=== PATIENT | female | born 1965 | race Caucasian/White ===

== ENCOUNTER → 2017-08-29 | Outpatient (CLI) | payer BC ==
[2017-08-30 12:02] LABS: HEPATITIS B SURFACE ANTIGEN NEGATIVE (NEGATIVE)
[2017-08-30 12:22] LABS: HEPATITIS C VIRUS ABY INDEX < 0.0 INDEX (<0.8)
[2017-08-30 12:23] LABS: HIV 1&2 SCREEN CENTAUR NEGATIVE (NEGATIVE)
== END ==
LOC: M WUC 15:51
DX: Z11.3 Encounter for screening for infections with a predominantly sexual mode of transmission (principal)

== ENCOUNTER 2018-01-16 15:05 | Emergency (ER) | payer BC, OTHER ==
[2018-01-16] MEDS: GI COCKTAIL 50ML BTL(HYOSCYAMINE/MAALOX/LIDOCAINE VISCOUS)(1:3:1) PO (16:31)
[2018-01-16] MEDS: ONDANSETRON 4 MG ORAL DISINTEGRATING TAB (Q0162 PER 1MG) PO (17:02)
== END 2018-01-16 17:22 | disposition home or self-care (01) ==
LOC: M ED 15:05
DX: T39.391A Poisoning by other nonsteroidal anti-inflammatory drugs [NSAID], accidental (unintentional), initial encounter (principal)
CPT/HCPCS: Q0162

== ENCOUNTER → 2020-05-05 | Outpatient (CLI) | payer OTHER, BC ==
[~2020-05-05] MED LIST: BACL10TA2 PO; BUPR1TAB56 PO; CLAR10CA3 PO; MONT10TA10 PO; OSPH1TAB PO; OXYB5TAB10 PO; SAXE1INJ SC; SERT-141 PO; TRAM50TA2 PO; VITA200028 PO; XANA0.5T PO; ZOFR4TAB14 PO
[2020-05-05 12:22] LABS: BASO # 0.1 10^3/uL (0.0-0.2); BASO % 1.7 % (0.0-1.0); EOS # 0.1 10^3/uL (0.0-0.5); EOS % 2.1 % (0.0-3.0); HEMOGLOBIN 11.6 g/dl (12.0-15.5); LYMPH # 1.5 10^3/uL (1.5-5.0); LYMPH % 30.4 % (24.0-44.0); MEAN CORPUSCULAR HEMOGLOBIN 25.5 pg (27.0-33.0); MEAN CORPUSCULAR HGB CONC 29.7 g/dl (32.0-36.5); MEAN CORPUSCULAR VOLUME 85.7 fl (80.0-96.0); MONO # 0.4 10^3/uL (0.0-0.8); MONO % 8.5 % (2.0-8.0); NEUTROPHILS # 2.8 10^3/uL (1.5-8.5); NEUTROPHILS % 57.1 % (36.0-66.0); PLATELET COUNT, AUTOMATED 237 10^3/uL (150-450); RED BLOOD COUNT 4.55 10^6/uL (4.00-5.40); WHITE BLOOD COUNT 4.8 10^3/uL (4.0-10.0)
[2020-05-05 13:06] LABS: CHOLESTEROL RISK RATIO 2.409 (<5); PERCENT SATURATION 10.7 % (13.2-45.0); TOTAL 25(OH) VITAMIN D 44.9 NG/ML (30.0-100.0)
== END ==
LOC: M WUC 09:10
PROVIDERS: ATTEND Internal Medicine
DX: E55.9 Vitamin D deficiency, unspecified (principal); E78.01 Familial hypercholesterolemia

== ENCOUNTER → 2020-07-24 | Outpatient (CLI) | payer OTHER, BC ==
[~2020-07-24] MED LIST changes: +ADVA230A INH; +CELE1CAP9 PO; +FERR240T PO; +OMEP-221 PO; +PROAAER10 INH; +VENL25TA28 PO; +VITA50005 PO
== END ==
LOC: M LABSMTC 09:41
PROVIDERS: ATTEND Anesthesiology
DX: Z01.812 Encounter for preprocedural laboratory examination (principal); Z11.52 Encounter for screening for COVID-19

== ENCOUNTER 2020-07-29 10:51 | Day surgery (SDC) | payer BC, OTHER ==
[~2020-07-29] VITALS: Ht 175.3 cm; Wt 147.0 kg
[~2020-07-29 10:51] MED LIST changes: +LIDOCAINE 2% 100MG/5ML SDV (FOR ANES.) As Ordered ONE; +NS 1,000 ML IV ONE; +fentaNYL 100 MCG/2 ML INJECTION (J3010) As Ordered ONE; +propofoL 500 MG/50 ML VIAL As Ordered ONE
[2020-07-29] MEDS ORDERED: propofoL 200 MG/20 ML VIAL As Ordered ONE (12:39)
--- NOTE | 2020-07-29 13:11 | ROOR ---
Patient Name: Enedina Massey Procedure Date: 07/29/2020 12:09 PM Date of : 1965 Age: 55 Room: [facility] Gender: Female Note Status: Finalized Procedure: Upper GI endoscopy Indications: Epigastric abdominal pain, Iron deficiency anemia Providers: Jamie Townsend MD Referring MD: ANTONELLA FISHMAN MD Requesting Provider: Medicines: Monitored Anesthesia Care Complications: No immediate complications. Procedure: Pre-Anesthesia Assessment: - Prior to the procedure, a History and Physical was performed, and patient medications and allergies were reviewed. The patient is competent. The risks and benefits of the procedure and the sedation options and risks were discussed with the patient. All questions were answered and informed consent was obtained. Patient identification and proposed procedure were verified by the physician, the nurse and the anesthesiologist in the procedure room. Mental Status Examination: alert and oriented. Airway Examination: normal oropharyngeal airway and neck mobility. Respiratory Examination: clear to auscultation. CV Examination: normal. Prophylactic Antibiotics: The patient does not require prophylactic antibiotics. Prior Anticoagulants: The patient has taken no previous anticoagulant or antiplatelet agents. ASA Grade Assessment: II - A patient with mild systemic disease. After reviewing the risks and benefits, the patient was deemed in satisfactory condition to undergo the procedure. The anesthesia plan was to use monitored anesthesia care (MAC). Immediately prior to administration of medications, the patient was re-assessed for adequacy to receive sedatives. The heart rate, respiratory rate, oxygen saturations, blood pressure, adequacy of pulmonary ventilation, and response to care were monitored throughout the procedure. The physical status of the patient was re-assessed after the procedure. The Endoscope was introduced through the mouth, and advanced to the second part of duodenum. The upper GI endoscopy was accomplished without difficulty. The patient tolerated the procedure well. Findings: LA Grade A (one or more mucosal breaks less than 5 mm, not extending between tops of 2 mucosal folds) esophagitis with no bleeding was found in the distal esophagus. Biopsies were taken with a cold forceps for histology. Verification of patient identification for the specimen was done by the physician and nurse using the patient's name, date and medical record number. Estimated blood loss was minimal. The Z-line was regular and was found 40 cm from the incisors. Evidence of a Kailee-en-Y gastrojejunostomy was found. The gastrojejunal anastomosis was characterized by healthy appearing mucosa. This was traversed. The apnvn-hc-calzldx limb was characterized by healthy appearing mucosa. The jejunojejunal anastomosis was characterized by healthy appearing mucosa. The xypasqyz-zx-vqiooxu limb was not examined as it could not be found. The examined jejunum was normal. Biopsies for histology were taken with a cold forceps for evaluation of celiac disease. Impression: - LA Grade A reflux esophagitis. Rule out Smith's esophagus. Biopsied. - Z-line regular, 40 cm from the incisors. - Kailee-en-Y gastrojejunostomy with gastrojejunal anastomosis characterized by healthy appearing mucosa. - Normal examined jejunum. Biopsied. Recommendation: - Patient has a contact number available for emergencies. The signs and symptoms of potential delayed complications were discussed with the patient. Return to normal activities tomorrow. Written discharge instructions were provided to the patient. - Post gastric bypass diet (small frequent meals and avoid fatty/ fried foods). - Continue present medications. - Await pathology results. - Telephone GI clinic for pathology results in 2 weeks. - Return to primary care physician. Procedure Code(s): --- Professional --- 91000, Esophagogastroduodenoscopy, flexible, transoral; with biopsy, single or multiple Diagnosis Code(s): --- Professional --- K21.0, Gastro-esophageal reflux disease with esophagitis Z98.0, Intestinal bypass and anastomosis status R10.13, Epigastric pain D50.9, Iron deficiency anemia, unspecified CPT copyright 2019 [employer]. All rights reserved. The codes documented in this report are preliminary and upon flute grinder review may be revised to meet current compliance requirements. Jamie Townsend MD Jamie Townsend MD 07/29/2020 1:10:52 PM Electronically signed by Jamie Townsend MD Number of Addenda: 0 Note Initiated On: 07/29/2020 12:09 PM Estimated Blood Loss: Estimated blood loss was minimal.
--- NOTE | 2020-07-29 13:18 | ROOR ---
Patient Name: Enedina Massey Procedure Date: 07/29/2020 12:11 PM Date of : 1965 Age: 55 Room: [facility] Gender: Female Note Status: Finalized Procedure: Colonoscopy Indications: Screening for colorectal malignant neoplasm, Incidental - Chronic diarrhea Providers: Jamie Townsend MD Referring MD: ANTONELLA FISHMAN MD Requesting Provider: Medicines: Monitored Anesthesia Care Complications: No immediate complications. Procedure: Pre-Anesthesia Assessment: - Prior to the procedure, a History and Physical was performed, and patient medications and allergies were reviewed. The patient is competent. The risks and benefits of the procedure and the sedation options and risks were discussed with the patient. All questions were answered and informed consent was obtained. Patient identification and proposed procedure were verified by the physician, the nurse and the anesthesiologist in the procedure room. Mental Status Examination: alert and oriented. Airway Examination: normal oropharyngeal airway and neck mobility. Respiratory Examination: clear to auscultation. CV Examination: normal. Prophylactic Antibiotics: The patient does not require prophylactic antibiotics. Prior Anticoagulants: The patient has taken no previous anticoagulant or antiplatelet agents. ASA Grade Assessment: II - A patient with mild systemic disease. After reviewing the risks and benefits, the patient was deemed in satisfactory condition to undergo the procedure. The anesthesia plan was to use monitored anesthesia care (MAC). Immediately prior to administration of medications, the patient was re-assessed for adequacy to receive sedatives. The heart rate, respiratory rate, oxygen saturations, blood pressure, adequacy of pulmonary ventilation, and response to care were monitored throughout the procedure. The physical status of the patient was re-assessed after the procedure. The Colonoscope was introduced through the anus and advanced to the terminal ileum, with identification of the appendiceal orifice and IC valve. The colonoscopy was performed without difficulty. The patient tolerated the procedure well. The quality of the bowel preparation was good. The terminal ileum, ileocecal valve, appendiceal orifice, and rectum were photographed. Scope insertion time was 3 minutes. Scope withdrawal time was 9 minutes. The total duration of the procedure was 12 minutes. Findings: The perianal and digital rectal examinations were normal. The terminal ileum appeared normal. A 3 mm polyp was found in the ascending colon. The polyp was sessile. The polyp was removed with a cold snare. Resection and retrieval were complete. Normal mucosa was found in the entire colon. Biopsies for histology were taken with a cold forceps from the right colon, left colon and rectosigmoid colon for evaluation of microscopic colitis. Verification of patient identification for the specimen was done by the physician and nurse using the patient's name, date and medical record number. Estimated blood loss was minimal. A large amount of semi-liquid stool was found from sigmoid to ascending colon, interfering with visualization. Lavage of the area was performed using a large amount of sterile water, resulting in incomplete clearance with fair visualization. Non-bleeding external and internal hemorrhoids were found during retroflexion. The hemorrhoids were medium-sized. Impression: - The examined portion of the ileum was normal. - One 3 mm polyp in the ascending colon, removed with a cold snare. Resected and retrieved. - Normal mucosa in the entire examined colon. Biopsied. - Stool from sigmoid to ascending colon. - Non-bleeding external and internal hemorrhoids. Recommendation: - Patient has a contact number available for emergencies. The signs and symptoms of potential delayed complications were discussed with the patient. Return to normal activities tomorrow. Written discharge instructions were provided to the patient. - High fiber diet and Post gastric bypass diet (small frequent meals and avoid fatty/ fried foods). - Continue present medications. - Await pathology results. - Repeat colonoscopy in 5-10 years for surveillance based on pathology results. - Telephone GI clinic for pathology results in 2 weeks. - Return to primary care physician. Procedure Code(s): --- Professional --- 05404, Colonoscopy, flexible; with removal of tumor(s), polyp(s), or other lesion(s) by snare technique 25304, 59, Colonoscopy, flexible; with biopsy, single or multiple Diagnosis Code(s): --- Professional --- Z12.11, Encounter for screening for malignant neoplasm of colon K64.8, Other hemorrhoids K63.5, Polyp of colon CPT copyright 2019 [employer]. All rights reserved. The codes documented in this report are preliminary and upon transcription coordinator review may be revised to meet current compliance requirements. Jamie Townsend MD Jamie Townsend MD 07/29/2020 1:18:11 PM Electronically signed by Jamie Townsend MD Number of Addenda: 0 Note Initiated On: 07/29/2020 12:11 PM Estimated Blood Loss: Estimated blood loss was minimal.
[2020-07-29 13:23] VITALS: BP 119/58
== END 2020-07-29 13:24 | disposition home or self-care (01) ==
LOC: M OPP 10:51
PROVIDERS: ATTEND Internal Medicine Gastroenterology
DX: Z12.11 Encounter for screening for malignant neoplasm of colon (principal); Z80.0 Family history of malignant neoplasm of digestive organs; K63.5 Polyp of colon; K64.8 Other hemorrhoids; K21.00 Gastro-esophageal reflux disease with esophagitis, without bleeding; Z98.0 Intestinal bypass and anastomosis status; R10.13 Epigastric pain; D50.9 Iron deficiency anemia, unspecified; R19.7 Diarrhea, unspecified; R39.89 Other symptoms and signs involving the genitourinary system; Z79.899 Other long term (current) drug therapy; Z88.1 Allergy status to other antibiotic agents; Z86.13 Personal history of malaria; Z98.84 Bariatric surgery status; Z87.891 Personal history of nicotine dependence
CPT/HCPCS: 43239; 45380; 45385; 88305; J3010

== ENCOUNTER → 2020-08-11 | Outpatient (REF) | payer BC, OTHER ==
[~2020-08-11] MED LIST changes: -LIDOCAINE 2% 100MG/5ML SDV (FOR ANES.) As Ordered ONE; -NS 1,000 ML IV ONE; -fentaNYL 100 MCG/2 ML INJECTION (J3010) As Ordered ONE; -propofoL 500 MG/50 ML VIAL As Ordered ONE
== END ==
LOC: M LAB REF 15:54
PROVIDERS: ATTEND Internal Medicine Gastroenterology
DX: R19.7 Diarrhea, unspecified (principal)

== ENCOUNTER 2020-09-09 22:19 | Observation (INO) | payer BC, OTHER ==
[~2020-09-09] VITALS: Ht 175.3 cm; Wt 147.7 kg
[~2020-09-09 22:19] MED LIST changes: +ERGO500029 PO; -VITA50005 PO
[2020-09-09 22:43] LABS: BASO # 0.1 10^3/uL (0.0-0.2); EOS # 0.1 10^3/uL (0.0-0.5); EOS % 1.4 % (0.0-3.0); HEMOGLOBIN 12.2 g/dl (12.0-15.5); LYMPH # 2.1 10^3/uL (1.5-5.0); LYMPH % 28.9 % (24.0-44.0); MEAN CORPUSCULAR HEMOGLOBIN 28.6 pg (27.0-33.0); MEAN CORPUSCULAR HGB CONC 32.1 g/dl (32.0-36.5); MEAN CORPUSCULAR VOLUME 89.2 fl (80.0-96.0); MONO # 0.6 10^3/uL (0.0-0.8); MONO % 7.7 % (2.0-8.0); NEUTROPHILS # 4.3 10^3/uL (1.5-8.5); NEUTROPHILS % 60.7 % (36.0-66.0); PLATELET COUNT, AUTOMATED 229 10^3/uL (150-450); RED BLOOD COUNT 4.26 10^6/uL (4.00-5.40); WHITE BLOOD COUNT 7.1 10^3/uL (4.0-10.0)
[2020-09-09 23:13] LABS: ALBUMIN 3.4 GM/DL (3.2-5.2); ALT/SGPT 27 U/L (12-78); BILIRUBIN,DIRECT < 0.1 MG/DL (0.0-0.2); BILIRUBIN,TOTAL 0.2 MG/DL (0.2-1.0); TOTAL PROTEIN 6.4 GM/DL (6.4-8.2)
[2020-09-09] MEDS ORDERED: MORPHINE 4 MG/ML 1ML VIAL/SYRINGE (J2270) IV ONE (23:30)
--- NOTE | 2020-09-09 23:43 | REPVR ---
PROCEDURE INFORMATION: Exam: XR Right Knee Exam date and time: 09/09/2020 10:56 PM Age: 55 years old Clinical indication: Other: Pain; Additional info: Fall TECHNIQUE: Imaging protocol: XR Right knee. Views: 4 or more views. COMPARISON: No relevant prior studies available. FINDINGS: Bones/joints: Slight sharpening of the tibial spines. Early degenerative spurring. No fracture. No joint effusion. Soft tissues: Soft tissue swelling or hematoma anterior to the patella. Mild subcutaneous edema about the knee medially and laterally. IMPRESSION: 1. Early degenerative change. 2. Prepatellar soft tissue swelling and possible hematoma with extension of edema about the knee medially and laterally. 3. Otherwise negative right knee. No fracture. Electronically signed by: Dean Love On 09/09/2020 23:43:09 PM
[2020-09-10 00:03] LABS: CPK CREATINE PHOSPHOKINASE 127 U/L (26-192)
--- NOTE | 2020-09-10 00:24 | REPVR ---
PROCEDURE INFORMATION: Exam: US Duplex Right Lower Extremity Veins, Limited Exam date and time: 09/09/2020 12:14 AM Age: 55 years old Clinical indication: Pain; Leg, upper; Right; Additional info: Knee trauma, pain out of proportion, swelling TECHNIQUE: Imaging protocol: Real-time Duplex ultrasound of the Right Lower Extremity with 2-D patel scale, color Doppler flow and spectral waveform analysis with image documentation. Limited exam was focused on the right lower extremity veins. COMPARISON: CR Knee, complete RIGHT 09/09/2020 10:47 PM FINDINGS: Right deep veins: Unremarkable. The common femoral, femoral, proximal profunda femoral and popliteal veins are patent without thrombus. Normal Doppler waveforms. Normal compressibility and/or augmentation response. Portions of calf veins are not seen due to body habitus. Right superficial veins: Unremarkable. Saphenofemoral junction is patent without thrombus. Soft tissues: Unremarkable. IMPRESSION: Negative right lower extremity venous duplex exam without evidence of deep venous thrombosis. Electronically signed by: Dean Love On 09/10/2020 00:23:34 AM
[2020-09-10] MEDS ORDERED: fentaNYL 100 MCG/2 ML INJECTION (J3010) IV ONE (01:00)
[2020-09-10] MEDS ORDERED: ACET-683 PO (02:26)
[2020-09-10] MEDS ORDERED: ACET25TA12 PO (02:26)
[2020-09-10] MEDS ORDERED: LORA24TA PO (02:26)
[2020-09-10] MEDS ORDERED: VENLAFAXINE ER PO (02:26)
[2020-09-10] MEDS ORDERED: ALPR0.25 PO (02:28)
[2020-09-10] MEDS ORDERED: MAALOX 30 ML SUSP *UDC PO PRN (03:35)
[2020-09-10] MEDS ORDERED: ACETAMINOPHEN TAB 650MG DOSE (2X325MG) PO PRN (03:35)
[2020-09-10] MEDS ORDERED: MOM 30ML SUSPENSION UDC PO PRN (03:35)
[2020-09-10] MEDS ORDERED: MORPHINE 4 MG/ML 1ML VIAL/SYRINGE (J2270) IV ONE (03:35)
[2020-09-10] MEDS ORDERED: PERCOCET 5MG/325MG TAB PO PRN (03:50)
[2020-09-10] MEDS ORDERED: MORPHINE 4 MG/ML 1ML VIAL/SYRINGE (J2270) IV PRN (03:50)
[2020-09-10] MEDS ORDERED: NS 1,000 ML IV SCH (04:35)
[2020-09-10] MEDS ORDERED: ALPRAZolam 0.25 MG TAB PO PRN (04:35)
--- NOTE | 2020-09-10 04:36 | HPEPDOC ---
[facility] Medical History & Physical Date of Admission Sep 10, 2020 Date of Service: Sep 10, 2020 History and Physical CHIEF COMPLAINT: Right knee pain HISTORY OF PRESENT ILLNESS: 55-year-old female with a history of gastric bypass surgery, osteoarthritis, depression, anxiety, hysterectomy, asthma, presenting to the ER with right-sided knee pain which developed after she sustained a mechanical fall and fell onto her and knee yesterday. This was followed immediately by large swelling and bruising of the knee. Patient was given 100 g of fentanyl en route via EMS. An additional 50 g while in the ER. Dr. Rizvi was consulted from the ER with concern for rupture of quadriceps tendon. Recommending MRI. MRI imaging of the knee. She'll be admitted to hospital service for ongoing orthopedic workup and pain control. PAST MEDICAL HISTORY: obesity OA Asthma Depression Anxiety PAST SURGICAL HISTORY: gastric bypass hysterectomy SOCIAL HISTORY: Patient denies smoking Patient denies etoh use Patient denies illicit drug use FAMILY HISTORY: Review the patient, reports no relevant family history ALLERGIES: Please see below. REVIEW OF SYSTEMS: 10 point review of systems completed, relevant findings noted in the HPI HOME MEDICATIONS: Please see below. PHYSICAL EXAMINATION: VITAL SIGNS: please see below General: NAD, comfortable. Obese female HEENT: PERRLA, EOMI, sclerae clear Neck: supple, normal ROM, no JVD Respiratory: lungs CTAB, no wheeze, no rales, no crackles CVS: RRR, normal S1, S2, no murmurs Abdo: soft, no masses, no hepatosplenomegaly, BS+, no rebound tenderness Extremities: no edema, pulses 2+ MSK: Significant swelling and ecchymosis of the right knee with limited range of motion due to pain. Neuro: no focal neuro deficits, moving all 4 extremities, CN2-12 intact. Strength 5/5 in all 4 extremities. No nystagmus. Psych: calm, cooperative, AAO x 3 LABORATORY DATA: See below. IMAGING: XR R knee (09/09/20): 1. Early degenerative change. 2. Prepatellar soft tissue swelling and possible hematoma with extension of edema about the knee medially and laterally. 3. Otherwise negative right knee. No fracture. Vascular US (09/09/20): IMPRESSION: Negative right lower extremity venous duplex exam without evidence of deep venous thrombosis. MICROBIOLOGY: Please see below. ASSESSMENT: 55-year-old female with a history of gastric bypass surgery, osteoarthritis, depression, anxiety, hysterectomy, asthma, presenting with s ervices. Severe right knee pain after a fall in that knee. Concern for hemarthrosis/hematoma overlying the knee as well as rupture of the quadriceps tendon. Dr. Rizvi consulted from the OR. Recommending MRI knee to r/o tendon rupture. PLAN: R knee hematoma, possible quadriceps tendon rupture - sustained after fall on bent knee, mechanical - severe pain, required fentanyl 100 mcg on EMS arrival, additioanl 50 mc in ER - XR shows no obvious fx - Dr. Rizvi consulted, concern for quadriceps tendon rupture, obtain MRI R knee - pain control: oxycodone 5/325 q6h prn, morphine 4 mg q4h IV for breakthrough - bowel regimen - keep NPO, IV NS started Hx Gastric Bypass - cw pantoprazole Depression/anxiety - resume home meds Morbid obesity, BMI 48.1 - complicating care - check a1c, lipid [id number] DVT ppx: SCDs, TEDs. Holding heparin Vital Signs Vital Signs Date Time Temp Pulse Resp B/P (MAP) Pulse Ox O2 Delivery O2 Flow Rate FiO2 09/10/20 03:55 19 98 Room Air 09/09/20 22:36 98.0 93 159/81 (107) Laboratory Data Labs 24H Laboratory Tests 2 09/09/20 22:37: Immature Granulocyte % (Auto) 0.3, Neutrophils (%) (Auto) 60.7, Lymphocytes (%) (Auto) 28.9, Monocytes (%) (Auto) 7.7, Eosinophils (%) (Auto) 1.4, Basophils (%) (Auto) 1.0, Neutrophils # (Auto) 4.3, Lymphocytes # (Auto) 2.1, Monocytes # (Auto) 0.6, Eosinophils # (Auto) 0.1, Basophils # (Auto) 0.1, Nucleated Red Blood Cells % (auto) 0.0, Total Bilirubin 0.2, Direct Bilirubin < 0.1, Aspartate Amino Transf (AST/SGOT) 20, Alanine Aminotransferase (ALT/SGPT) 27, Alkaline Phosphatase 88, Total Creatine Kinase 127, Total Protein 6.4, Albumin 3.4, Albumin/Globulin Ratio 1.1L 09/09/20 22:39: POC Glucose (Misc Panel) 111H, POC Sodium (Misc Panel) 142, POC Potassium (Misc Panel) 4.4, POC Chloride (Misc Panel) 105, POC Total CO2 (Misc Panel) 24.0, POC Blood Urea Nitrogen (Misc Panel 17, POC Ionized Calcium (Misc Panel) 4.8, POC Creatinine (Misc Panel) 0.8, POC Hematocrit (Misc Panel) 35.0L 09/10/20 03:06: CBC/BMP Laboratory Tests 09/09/20 22:37 Home Medications Scheduled Acetaminophen (Acetaminophen) 500 Mg Tablet, 1,000 MG PO QAM Bupropion HCl (Bupropion HCl Sr) 200 Mg Tab, 200 MG PO BID Celecoxib (Celecoxib) 200 Mg Capsule, 200 MG PO DAILY Ergocalciferol (Vitamin D2) (Vitamin D2) 50,000 Units Cap, 50,000 UNITS PO QWEEK SATURDAY Liraglutide (Saxenda) 18 Mg/3 Ml Inj, 1.2 MG SC QHS Loratadine/Pseudoephedrine (Loratadine-D 24Hr Tablet) 1 Each Tab.er.24h, 1 TAB PO QHS Omeprazole (Omeprazole) 40 Mg Capsule.dr, 40 MG PO DAILY Ospemifene (Osphena) 60 Mg Tab, 60 MG PO QPM Oxybutynin Chloride (Oxybutynin Chloride) 5 Mg Tab, 10 MG PO BID [Venlafaxine Er] , 225 MG PO QPM Scheduled PRN Acetaminophen/Diphenhydramine (Acetaminophen Pm Caplet) 1 Each Tablet, 1 TAB PO QHS PRN for SLEEP Alprazolam (Alprazolam) 0.25 Mg Tablet, 0.25 MG PO QHS PRN for ANXIETY Tramadol HCl (Tramadol HCl) 50 Mg Tab, 50 MG PO BID PRN for pain Allergies Coded Allergies: tetracycline (Verified Adverse Reaction, Intermediate, vomiting and di arrhea, 07/22/20) A-FIB/CHADSVASC A-FIB History Current/History of A-Fib/PAF?: No ROSALIA REYES MD Sep 10, 2020 04:36
[2020-09-10 04:54] LABS: RSV AMPLIFICATION NEGATIVE (NEGATIVE)
--- NOTE | 2020-09-10 05:46 | REPVR ---
PROCEDURE INFORMATION: Exam: MR Right Lower Extremity Joint Without Contrast, Knee Exam date and time: 09/10/2020 4:55 AM Age: 55 years old Clinical indication: Injury or trauma; Fall; Blunt trauma; Knee; Right; Injury date: 09/10/20; Additional info: Knee swelling, severe pain, fall, quad tear? , Thigh pls TECHNIQUE: Imaging protocol: MR of the Right lower extremity joint without contrast. Exam focused on the knee. COMPARISON: US Duplex, Ext,LOWER veins,unilat RIGHT 09/10/2020 12:01 AM FINDINGS: Bones and cartilage: Degenerative arthritis femorotibial joint. Normal underlying marrow signal within the distal femur and proximal tibia.. Chondromalacia patella with small area of increased T2 signal within the inner margin of the patella probably degenerative. Joint spaces: Very small knee joint effusion anteriorly. Medial meniscus: Unremarkable. No tear. Lateral meniscus: Unremarkable. No tear. Anterior cruciate ligament: Unremarkable. No tear. Posterior cruciate ligament: Unremarkable. No tear. Medial capsule and supporting structures: Unremarkable. No tear. Lateral capsule and supporting structures: Unremarkable. No tear. Extensor mechanism of knee: Unremarkable. No tear. Muscles: Unremarkable. Soft tissues: Prominent superficial soft tissue edema of the imaged level of the right knee most pronounced anteriorly, laterally and medially. More focal heterogeneous pre patella superficial soft tissue mass according to the clinical history most likely representing hematoma extends caudad to the knee joint level and proximal tibia anterior to the infra patella tendon. Overall dimensions measure 13.7 cm craniocaudal by 10.6 cm transversely by 7.3 cm antro posterior. Vasculature: Superficial venous varicosities. Other findings: Prominent motion degradation. IMPRESSION: 1. Large pre patella superficial soft tissue hematoma. 2. 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 3. Superficial soft tissue edema. Electronically signed by: Nae Mosquera On 09/10/2020 05:45:18 AM
[2020-09-10 06:14] VITALS: BP 154/94
[2020-09-10 06:55] LABS: BASO # 0.1 10^3/uL (0.0-0.2); BASO % 1.1 % (0.0-1.0); EOS # 0.1 10^3/uL (0.0-0.5); EOS % 1.1 % (0.0-3.0); HEMATOCRIT 38.2 % (36.0-47.0); LYMPH % 32.1 % (24.0-44.0); MEAN CORPUSCULAR HEMOGLOBIN 28.4 pg (27.0-33.0); MEAN CORPUSCULAR HGB CONC 31.4 g/dl (32.0-36.5); MEAN CORPUSCULAR VOLUME 90.5 fl (80.0-96.0); MONO # 0.5 10^3/uL (0.0-0.8); MONO % 7.5 % (2.0-8.0); NEUTROPHILS # 3.6 10^3/uL (1.5-8.5); NEUTROPHILS % 57.7 % (36.0-66.0); PLATELET COUNT, AUTOMATED 225 10^3/uL (150-450); RED BLOOD COUNT 4.22 10^6/uL (4.00-5.40); WHITE BLOOD COUNT 6.3 10^3/uL (4.0-10.0)
[2020-09-10 07:09] LABS: HEMOGLOBIN A1c 5.5 %
[2020-09-10 07:15] LABS: CHOLESTEROL RISK RATIO 2.329 (<5)
[2020-09-10 07:16] LABS: ALBUMIN 3.4 GM/DL (3.2-5.2); ALT/SGPT 26 U/L (12-78); BILIRUBIN,TOTAL 0.2 MG/DL (0.2-1.0); BLOOD UREA NITROGEN 17 MG/DL (7-18); CALCIUM LEVEL 8.3 MG/DL (8.5-10.1); CARBON DIOXIDE LEVEL 31 MEQ/L (21-32); CHLORIDE LEVEL 108 MEQ/L (98-107); CREATININE FOR GFR 0.82 MG/DL (0.55-1.30); GLOMERULAR FILTRATION RATE > 60.0 (>51); GLUCOSE, FASTING 110 MG/DL (70-100); MAGNESIUM LEVEL 2.3 MG/DL (1.8-2.4); POTASSIUM SERUM 4.2 MEQ/L (3.5-5.1); SODIUM LEVEL 143 MEQ/L (136-145); TOTAL PROTEIN 6.2 GM/DL (6.4-8.2)
[2020-09-10] MEDS ORDERED: DOCUSATE SODIUM 100MG CAPSULE PO SCH (09:00)
[2020-09-10] MEDS ORDERED: oxyBUTYnin 5 MG TAB PO SCH (09:00)
[2020-09-10] MEDS ORDERED: buPROPion (WELLBUTRIN SR) 100 MG SR TAB PO SCH (09:00)
--- NOTE | 2020-09-10 09:41 | CR.PDOC ---
General Date of Consultation: Sep 10, 2020 Consultation REASON FOR CONSULTATION/CHIEF COMPLAINT: right knee swelling and pain History from patient and admission H&P HISTORY OF PRESENT ILLNESS: Patient fell yesterday evening while carrying too many objects to balance. She fell forward onto her right knee onto a thinly carpeted concrete floor. She had immediate severe pain and was taken to the ED. She had xrays and an US r/o dvt which were negative except for hematoma. Ortho called by ED re: concern for pain, which was thought to be disproportionate. Given the severity of the soft tissue swellling and the large hematoma on xray, pain seemed appropriate and compartment syndrome less likely. Concerned for possible quads muscular or tendon tearing, MRI ordered and reviewed. Showed no significant pathology aside from the large hematoma and soft tissue swelling. Patient admitted to Hospitalist service for failure to cope secondary to pain. Overnight, MRI completed, as above. Patient states that pain improved significantly. Working with PT on assessment this am. Denies any tingling or numbness to right leg. PAST MEDICAL HISTORY: obesity OA Asthma Depression Anxiety PAST SURGICAL HISTORY: gastric bypass hysterectomy SOCIAL HISTORY: Patient denies smoking Patient denies etoh use Patient denies illicit drug use FAMILY HISTORY: Review the patient, reports no relevant family history ALLERGIES: Please see below. REVIEW OF SYSTEMS: As noted in the HPI HOME MEDICATIONS: Please see below. PHYSICAL EXAMINATION: NVI to right leg. Palpable PT pulse, grossly intact sensation and motor to foot and ankle. Edema, erythema and ecchymosis to right prepatellar region. tender to touch prepatellar bursal region, reportedly improved large fluctuant peripatellar mass consistent with hematoma calf non tender and compressible thight non tender and compressible LABORATORY DATA: See below. IMAGING: XR R knee 1. Early degenerative change. 2. Prepatellar soft tissue swelling and possible hematoma with extension of edema about the knee medially and laterally. 3. Otherwise negative right knee. No fracture. US R leg IMPRESSION: Negative right lower extremity venous duplex exam without evidence of DVT MRI right knee: hematoma, large and diffuse with prepatellar soft tissue edema. No evidence of soft tissue structure injury, specifically. Some evidence of varicosities MICROBIOLOGY: Please see below. ASSESSMENT: 55-year-old female with a history of gastric bypass surgery, ost eoarthritis, depression, anxiety, hysterectomy, asthma, presenting with Severe right knee pain after a fall. Hematoma noted on MRI with no other obvious injuries. Pain likely associated with prepatellar bursitis and hematoma may be associated with a veinous varicosity tear. PLAN: R knee hematoma with prepatellar bursitis. No surgical intervention needed at this time. WBAT, ROM as tolerated. Ambulatory aids as necessary. Knee immobilizer PRN for comfort. Pt would like to follow up in clinic as needed, Office contact info provided. Will supply Outpt PT referral to [facility] as requested. DC home when able and cleared by PT from Ortho perspective. Vital Signs/I&O Vital Signs Date Time Temp Pulse Resp B/P (MAP) Pulse Ox O2 Delivery O2 Flow Rate FiO2 09/10/20 06:20 18 Room Air 09/10/20 06:14 98.3 95 154/94 (114) 97 Laboratory Data Labs 24H Laboratory Tests 2 09/09/20 22:37: Immature Granulocyte % (Auto) 0.3, Neutrophils (%) (Auto) 60.7, Lymphocytes (%) (Auto) 28.9, Monocytes (%) (Auto) 7.7, Eosinophils (%) (Auto) 1.4, Basophils (%) (Auto) 1.0, Neutrophils # (Auto) 4.3, Lymphocytes # (Auto) 2.1, Monocytes # (Auto) 0.6, Eosinophils # (Auto) 0.1, Basophils # (Auto) 0.1, Nucleated Red Blood Cells % (auto) 0.0, Total Bilirubin 0.2, Direct Bilirubin < 0.1, Aspartate Amino Transf (AST/SGOT) 20, Alanine Aminotransferase (ALT/SGPT) 27, Alkaline Phosphatase 88, Total Creatine Kinase 127, Total Protein 6.4, Albumin 3.4, Albumin/Globulin Ratio 1.1L 09/09/20 22:39: POC Glucose (Misc Panel) 111H, POC Sodium (Misc Panel) 142, POC Potassium (Misc Panel) 4.4, POC Chloride (Misc Panel) 105, POC Total CO2 (Misc Panel) 24.0, POC Blood Urea Nitrogen (Misc Panel 17, POC Ionized Calcium (Misc Panel) 4.8, POC Creatinine (Misc Panel) 0.8, POC Hematocrit (Misc Panel) 35.0L 09/10/20 03:06: Coronavirus (COVID-19)(PCR) NEGATIVE, Influenza Type A (RT-PCR) NEGATIVE, Influenza Type B (RT-PCR) NEGATIVE, Respiratory Syncytial Virus (PCR) NEGATIVE 09/10/20 06:32: Immature Granulocyte % (Auto) 0.5, Neutrophils (%) (Auto) 57.7, Lymphocytes (%) (Auto) 32.1, Monocytes (%) (Auto) 7.5, Eosinophils (%) (Auto) 1.1, Basophils (%) (Auto) 1.1H, Neutrophils # (Auto) 3.6, Lymphocytes # (Auto) 2.0, Monocytes # (Auto) 0.5, Eosinophils # (Auto) 0.1, Basophils # (Auto) 0.1, Nucleated Red Blood Cells % (auto) 0.0, Total Bilirubin 0.2, Aspartate Amino Transf (AST/SGOT) 16, Alanine Aminotransferase (ALT/SGPT) 26, Alkaline Phosphatase 74, Total Protein 6.2L, Albumin 3.4, Albumin/Globulin Ratio 1.2, Anion Gap 4L, Glomerular Filtration Rate > 60.0, Estimated Mean Plasma Glucose 111H, Hemoglobin A1c 5.5, Calcium Level 8.3L, Magnesium Level 2.3, Triglycerides Level 50, Total Cholesterol 184, LDL Cholesterol 95, Non-HDL Cholesterol (LDL + VLDL) 105, Total HDL Cholesterol 79, Cholesterol/HDL Ratio 2.329 CBC/BMP Laboratory Tests 09/09/20 22:37 09/10/20 06:32 Allergies Coded Allergies: tetracycline (Verified Adverse Reaction, Intermediate, vomiting and diarrhea, 07/22/20) Home Medications Scheduled Acetaminophen (Acetaminophen) 500 Mg Tablet, 1,000 MG PO QAM, (Reported) Bupropion HCl (Bupropion HCl Sr) 200 Mg Tab, 200 MG PO BID, (Reported) Celecoxib (Celecoxib) 200 Mg Capsule, 200 MG PO DAILY, (Reported) Ergocalciferol (Vitamin D2) (Vitamin D2) 50,000 Units Cap, 50,000 UNITS PO QWEEK, (Reported) SATURDAY Liraglutide (Saxenda) 18 Mg/3 Ml Inj, 1.2 MG SC QHS, (Reported) Loratadine/Pseudoephedrine (Loratadine-D 24Hr Tablet) 1 Each Tab.er.24h, 1 TAB PO QHS, (Reported) Omeprazole (Omeprazole) 40 Mg Capsule.dr, 40 MG PO DAILY, (Reported) Ospemifene (Osphena) 60 Mg Tab, 60 MG PO QPM, (Reported) Oxybutynin Chloride (Oxybutynin Chloride) 5 Mg Tab, 10 MG PO BID, (Reported) [Venlafaxine Er] , 225 MG PO QPM, (Reported) Scheduled PRN Acetaminophen/Diphenhydramine (Acetaminophen Pm Caplet) 1 Each Tablet, 1 TAB PO QHS PRN for SLEEP, (Reported) Alprazolam (Alprazolam) 0.25 Mg Tablet, 0.25 MG PO QHS PRN for ANXIETY, (Reported) Tramadol HCl (Tramadol HCl) 50 Mg Tab, 50 MG PO BID PRN for pain, (Reported) FARHAD STERLING MD Sep 10, 2020 09:41
[2020-09-10] MEDS ORDERED: TRAM50TA2 PO (09:56)
[2020-09-10] MEDS ORDERED: PERC10TA26 PO (11:52)
--- NOTE | 2020-09-10 13:34 | DS.PDOC ---
Discharge Summary General Date of Admission Sep 09, 2020 at 22:20 Date of Discharge 09/10/20 Discharge Summary PROCEDURES PERFORMED DURING STAY: [None]. ADMITTING DIAGNOSES: Depression/anxiety Morbid obesity, BMI 48.1 Hx Gastric Bypass R knee hematoma with prepatellar bursitis DISCHARGE DIAGNOSES: Depression/anxiety Morbid obesity, BMI 48.1 Hx Gastric Bypass R knee hematoma with prepatellar bursitis COMPLICATIONS/CHIEF COMPLAINT: R Knee Pain,Unable To Bear Weight On R Lower Extr. HISTORY OF PRESENT ILLNESS:Patient fell yesterday evening while carrying too many objects to balance. She fell forward onto her right knee onto a thinly carpeted concrete floor. She had immediate severe pain and was taken to the ED. She had xrays and an US r/o dvt which were negative except for hematoma. Ortho called by ED re: concern for pain, which was thought to be disproportionate. Given the severity of the soft tissue swellling and the large hematoma on xray, pain seemed appropriate and compartment syndrome less likely. Concerned for possible quads muscular or tendon tearing, MRI ordered and reviewed. Showed no significant pathology aside from the large hematoma and soft tissue swelling. Patient admitted to Hospitalist service for failure to cope secondary to pain. Overnight, MRI completed, as above. Patient states that pain improved significantly. Working with PT on assessment this am. Denies any tingling or numbness to right leg. HOSPITAL COURSE: During hospital stay following showed addressed Patient was consulted by orthopedic team patient was diagnosed with R knee hematoma with prepatellar bursitis. No surgical intervention needed at this time. WBAT, ROM as tolerated. Ambulatory aids as necessary. Knee immobilizer PRN for comfort. DISCHARGE MEDICATIONS: Please see below. ALLERGIES: Please see below. PHYSICAL EXAMINATION ON DISCHARGE: VITAL SIGNS: please see below General: NAD, comfortable. Obese female HEENT: PERRLA, EOMI, sclerae clear Neck: supple, normal ROM, no JVD Respiratory: lungs CTAB, no wheeze, no rales, no crackles CVS: RRR, normal S1, S2, no murmurs Abdo: soft, no masses, no hepatosplenomegaly, BS+, no rebound tenderness Extremities: no edema, pulses 2+ MSK: Significant swelling and ecchymosis of the right knee with limited range of motion due to pain. Neuro: no focal neuro deficits, moving all 4 extremities, CN2-12 intact. Strength 5/5 in all 4 extremities. No nystagmus. Psych: calm, cooperative, AAO x 3 LABORATORY DATA: Please see below. IMAGING: [facility] NAME: SHAUN HUSAIN DATE OF : 1965 BUSINESS NUMBER: [id number] AGE: 55 SEX: F REPORT #: [id number] ROOM: ED INP TECHNOLOGIST: MARYA DOCTOR: IAM DUENAS PA-C Ordered for Date&Time: 09/10/20 0146 cc: [~ rep ct ivnm] Service Date&Time: 09/10/20 0455 This report is in Signed status. Interpretation performed by [facility]. Thank you for having your radiology procedures performed at [facility] RADIOLOGY REPORT Date&Time printed: [~ rep prt dt last] [~ rep prt tm last] Page 2 of 2 [place] [id number] RADIOLOGY REPORT This report is in Signed status. Interpretation performed by [facility]. Thank you for having your radiology procedures performed at [facility] RADIOLOGY REPORT Date&Time printed: [~ rep prt dt last] [~ rep prt tm last] Page 1 of 2 PROCEDURE INFORMATION: Exam: MR Right Lower Extremity Joint Without Contrast, Knee Exam date and time: 09/10/2020 4:55 AM Age: 55 years old Clinical indication: Injury or trauma; Fall; Blunt trauma; Knee; Right; Injury date: 09/10/20; Additional info: Knee swelling, severe pain, fall, quad tear? , Thigh pls TECHNIQUE: Imaging protocol: MR of the Right lower extremity joint without contrast. Exam focused on the knee. COMPARISON: US Duplex, Ext,LOWER veins,unilat RIGHT 09/10/2020 12:01 AM FINDINGS: Bones and cartilage: Degenerative arthritis femorotibial joint. Normal underlying marrow signal within the distal femur and proximal tibia.. Chondromalacia patella with small area of increased T2 signal within the inner margin of the patella probably degenerative. Joint spaces: Very small knee joint effusion anteriorly. Medial meniscus: Unremarkable. No tear. Lateral meniscus: Unremarkable. No tear. Anterior cruciate ligament: Unremarkable. No tear. Posterior cruciate ligament: Unremarkable. No tear. Medial capsule and supporting structures: Unremarkable. No tear. Lateral capsule and supporting structures: Unremarkable. No tear. Extensor mechanism of knee: Unremarkable. No tear. Muscles: Unremarkable. Soft tissues: Prominent superficial soft tissue edema of the imaged level of the right knee most pronounced anteriorly, laterally and medially. More focal heterogeneous pre patella superficial soft tissue mass according to the clinical history most likely representing hematoma extends caudad to the knee joint level and proximal tibia anterior to the infra patella tendon. Overall dimensions measure 13.7 cm craniocaudal by 10.6 cm transversely by 7.3 cm antro posterior. Vasculature: Superficial venous varicosities. Other findings: Prominent motion degradation. IMPRESSION: 1. Large pre patella superficial soft tissue hematoma. 2. 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 3. Superficial soft tissue edema. Electronically signed by: Nae Serra On 09/10/2020 05:45:18 AM DD: NAE SERRA DO 09/10/20 0455 DT: VR 09/10/2045 DS: NADEGE 09/10/2045 [~ rep ct labl] PROGNOSIS: Fair ACTIVITY: [As tolerated]. DIET: Cardiac DISPOSITION: 01 Home, Self-Care. ITEMS TO FOLLOWUP ON ON OUTPATIENT: Follow-up with PCP. DISCHARGE CONDITION: [Stable]. TIME SPENT ON DISCHARGE:40 minutes. Vital Signs/I&Os Vital Signs Date Time Temp Pulse Resp B/P (MAP) Pulse Ox O2 Delivery O2 Flow Rate FiO2 09/10/20 06:20 18 Room Air 09/10/20 06:14 98.3 95 154/94 (114) 97 Laboratory Data Labs 24H Laboratory Tests 2 09/09/20 22:37: Immature Granulocyte % (Auto) 0.3, Neutrophils (%) (Auto) 60.7, Lymphocytes (%) (Auto) 28.9, Monocytes (%) (Auto) 7.7, Eosinophils (%) (Auto) 1.4, Basophils (%) (Auto) 1.0, Neutrophils # (Auto) 4.3, Lymphocytes # (Auto) 2.1, Monocytes # (Auto) 0.6, Eosinophils # (Auto) 0.1, Basophils # (Auto) 0.1, Nucleated Red Blood Cells % (auto) 0.0, Total Bilirubin 0.2, Direct Bilirubin < 0.1, Aspartate Amino Transf (AST/SGOT) 20, Alanine Aminotransferase (ALT/SGPT) 27, Alkaline Phosphatase 88, Total Creatine Kinase 127, Total Protein 6.4, Albumin 3.4, Albumin/Globulin Ratio 1.1L 09/09/20 22:39: POC Glucose (Misc Panel) 111H, POC Sodium (Misc Panel) 142, POC Potassium (Misc Panel) 4.4, POC Chloride (Misc Panel) 105, POC Total CO2 (Misc Panel) 24.0, POC Blood Urea Nitrogen (Misc Panel 17, POC Ionized Calcium (Misc Panel) 4.8, POC Creatinine (Misc Panel) 0.8, POC Hematocrit (Misc Panel) 35.0L 09/10/20 03:06: Coronavirus (COVID-19)(PCR) NEGATIVE, Influenza Type A (RT-PCR) NEGATIVE, Influenza Type B (RT-PCR) NEGATIVE, Respiratory Syncytial Virus (PCR) NEGATIVE 09/10/20 06:32: Immature Granulocyte % (Auto) 0.5, Neutrophils (%) (Auto) 57.7, Lymphocytes (%) (Auto) 32.1, Monocytes (%) (Auto) 7.5, Eosinophils (%) (Auto) 1.1, Basophils (%) (Auto) 1.1H, Neutrophils # (Auto) 3.6, Lymphocytes # (Auto) 2.0, Monocytes # (Auto) 0.5, Eosinophils # (Auto) 0.1, Basophils # (Auto) 0.1, Nucleated Red Blood Cells % (auto) 0.0, Total Bilirubin 0.2, Aspartate Amino Transf (AST/SGOT) 16, Alanine Aminotransferase (ALT/SGPT) 26, Alkaline Phosphatase 74, Total Protein 6.2L, Albumin 3.4, Albumin/Globulin Ratio 1.2, Anion Gap 4L, Glomerular Filtration Rate > 60.0, Estimated Mean Plasma Glucose 111H, Hemoglobin A1c 5.5, Calcium Level 8.3L, Magnesium Level 2.3, Triglycerides Level 50, Total Cholesterol 184, LDL Cholesterol 95, Non-HDL Cholesterol (LDL + VLDL) 105, Total HDL Cholesterol 79, Cholesterol/HDL Ratio 2.329 CBC/BMP Laboratory Tests 09/09/20 22:37 09/10/20 06:32 Discharge Medications Scheduled Acetaminophen (Acetaminophen) 500 Mg Tablet, 1,000 MG PO QAM, (Reported) Bupropion HCl (Bupropion HCl Sr) 200 Mg Tab, 200 MG PO BID, (Reported) Celecoxib (Celecoxib) 200 Mg Capsule, 200 MG PO DAILY, (Reported) Ergocalciferol (Vitamin D2) (Vitamin D2) 50,000 Units Cap, 50,000 UNITS PO QWEEK, (Reported) SATURDAY Liraglutide (Saxenda) 18 Mg/3 Ml Inj, 1.2 MG SC QHS, (Reported) Loratadine/Pseudoephedrine (Loratadine-D 24Hr Tablet) 1 Each Tab.er.24h, 1 TAB PO QHS, (Reported) Omeprazole (Omeprazole) 40 Mg Capsule.dr, 40 MG PO DAILY, (Reported) Ospemifene (Osphena) 60 Mg Tab, 60 MG PO QPM, (Reported) Oxybutynin Chloride (Oxybutynin Chloride) 5 Mg Tab, 10 MG PO BID, (Reported) [Venlafaxine Er] , 225 MG PO QPM, (Reported) Scheduled PRN Acetaminophen/Diphenhydramine (Acetaminophen Pm Caplet) 1 Each Tablet, 1 TAB PO QHS PRN for SLEEP, (Reported) Alprazolam (Alprazolam) 0.25 Mg Tablet, 0.25 MG PO QHS PRN for ANXIETY, (Reported) Oxycodone HCl/Acetaminophen (Percocet 10-325 mg Tablet) 1 Each Tablet, 1 TAB PO Q4-6HP PRN for SEVERE PAIN (PS 8-10) Tramadol HCl (Tramadol HCl) 50 Mg Tab, 50 MG PO BID PRN for pain, (Reported) Tramadol HCl (Tramadol HCl) 50 Mg Tablet, 1 TAB PO Q6HP PRN for pain Allergies Coded Allergies: tetracycline (Verified Adverse Reaction, Intermediate, vomiting and diarrhea, 07/22/20) ARLYN HU DO Sep 10, 2020 13:34
== END 2020-09-10 12:17 | disposition home or self-care (01) ==
LOC: M ED 22:19 → M ED INP 22:20 → M MSPAV 09-10 04:08
PROVIDERS: ADMIT Family Medicine; ATTEND Family Medicine
DX: S80.01XA Contusion of right knee, initial encounter (principal); M70.41 Prepatellar bursitis, right knee; W01.0XXA Fall on same level from slipping, tripping and stumbling without subsequent striking against object, initial encounter; Y92.098 Other place in other non-institutional residence as the place of occurrence of the external cause; M25.561 Pain in right knee; M17.11 Unilateral primary osteoarthritis, right knee; J45.909 Unspecified asthma, uncomplicated; F32.9 Major depressive disorder, single episode, unspecified; F41.9 Anxiety disorder, unspecified; Z98.84 Bariatric surgery status; E66.01 Morbid (severe) obesity due to excess calories; Z68.42 Body mass index [BMI] 45.0-49.9, adult; Z79.899 Other long term (current) drug therapy; Z79.1 Long term (current) use of non-steroidal anti-inflammatories (NSAID); Z88.1 Allergy status to other antibiotic agents; F17.200 Nicotine dependence, unspecified, uncomplicated
CPT/HCPCS: 36415; 73564; 73721; 80047; 80053; 80061; 80076; 82550; 83036; 83735; 85025; 87631; 93971; 96374; 96375; 96376; 97161; 99284; J2270; J3010

== ENCOUNTER → 2020-10-05 | Outpatient (CLI) | payer BC, OTHER ==
[~2020-10-05] MED LIST changes: +ACET-683 PO; +ACET25TA12 PO; +ALPR0.25 PO; +LORA24TA PO; +PERC10TA26 PO; +VENLAFAXINE ER PO
--- NOTE | 2020-10-05 13:57 | REP ---
INDICATION: PAIN IN RT KNEE. COMPARISON: Right knee 09/09/2020. TECHNIQUE: Standing AP view bilateral knees. FINDINGS: There is no acute fracture or dislocation. There is mild medial joint space narrowing bilaterally with mild subchondral sclerosis the medial tibial plateaus. IMPRESSION: Mild bilateral degenerative changes. <Electronically signed by Abdiel Merida > 10/05/20 0944
== END ==
LOC: M SOG 09:01
PROVIDERS: ATTEND Orthopaedic Surgery Adult Reconstructive Orthopaedic Surgery
DX: M25.561 Pain in right knee (principal)

== ENCOUNTER → 2020-10-11 | Outpatient (CLI) | payer BC, OTHER ==
--- NOTE | 2020-10-11 10:46 | REP ---
INDICATION: EPIGASTRIC PAIN. FINDINGS: Multiple ultrasonographic images of the liver show the hepatic parenchymal echo texture to appear unremarkable. There are no focal masses. There is no intrahepatic ductal dilatation. The common bile duct measures approximately 6 mm in its greatest transverse dimension. Multiple ultrasonographic images of the gallbladder show no focal or diffuse gallbladder wall thickening. There are no echogenic foci within the gallbladder lumen, which casts acoustic shadows. There is no pericholecystic edema. Images of the pancreatic region show no gross abnormality. The imaged portion of the right kidney is unremarkable. IMPRESSION: Unremarkable right upper quadrant ultrasound. Accredited by the [employer] in General Ultrasound. <Electronically signed by Eric Garcia > 10/11/20 1042
== END ==
LOC: M RAD 10:11
PROVIDERS: ATTEND Internal Medicine Gastroenterology
DX: R10.13 Epigastric pain (principal)

== ENCOUNTER → 2021-03-31 | Outpatient (CLI) | payer BC, OTHER ==
[~2021-03-31] MED LIST changes: +CHOL4POW3 PO; +DICL1GEL3; +EFFE150C2 PO; -MONT10TA10 PO; +MONT10TA97 PO; +MUPI2OI; -OMEP-221 PO; +OMEP40CA5 PO
== END ==
LOC: M SOG 14:21
PROVIDERS: ATTEND Orthopaedic Surgery Hand Surgery
DX: M79.642 Pain in left hand (principal)

== ENCOUNTER → 2021-04-19 | Outpatient (CLI) | payer BC, OTHER | LOC: M LABSMTC 11:21 | PROVIDERS: ATTEND Family Medicine | DX: Z11.52 Encounter for screening for COVID-19 (principal) ==

== ENCOUNTER → 2021-07-12 | Outpatient (CLI) | payer BC, OTHER ==
[~2021-07-12] MED LIST changes: +CHOL4POW14 PO; -CHOL4POW3 PO; +LOPE1TAB PO; +SEMA0.5P IM; +VENL150T24 PO
== END ==
LOC: M LABSMTC 10:13
PROVIDERS: ATTEND Anesthesiology
DX: Z01.818 Encounter for other preprocedural examination (principal); Z11.52 Encounter for screening for COVID-19

== ENCOUNTER 2021-07-17 11:19 | Day surgery (SDC) | payer BC, OTHER ==
[~2021-07-17] VITALS: Ht 175.3 cm; Wt 153.5 kg
[~2021-07-17 11:19] MED LIST changes: +NS 1,000 ML IV ONE
[2021-07-17] MEDS ORDERED: LIDOCAINE 2% 100MG/5ML SDV (FOR ANES.) As Ordered ONE (13:00)
[2021-07-17] MEDS ORDERED: propofoL 200 MG/20 ML VIAL As Ordered ONE (13:00)
[2021-07-17 13:42] VITALS: BP 138/74
== END 2021-07-17 13:43 | disposition home or self-care (01) ==
LOC: M OPP 11:19
PROVIDERS: ATTEND Internal Medicine Gastroenterology
DX: Z12.11 Encounter for screening for malignant neoplasm of colon (principal); Z80.0 Family history of malignant neoplasm of digestive organs; K63.5 Polyp of colon; K57.30 Diverticulosis of large intestine without perforation or abscess without bleeding; K64.8 Other hemorrhoids; D50.9 Iron deficiency anemia, unspecified; Z98.84 Bariatric surgery status; Z79.891 Long term (current) use of opiate analgesic; Z79.899 Other long term (current) drug therapy; Z88.1 Allergy status to other antibiotic agents; Z87.891 Personal history of nicotine dependence; Z80.1 Family history of malignant neoplasm of trachea, bronchus and lung; Z80.8 Family history of malignant neoplasm of other organs or systems

== ENCOUNTER → 2022-02-19 | Outpatient (CLI) | payer BC, OTHER ==
[~2022-02-19] MED LIST changes: +CHOL378P3 PO; -CHOL4POW14 PO; +GASTROGRAFIN SOLUTION 30ML As Ordered ONE; +GLUCAGON INJ 1MG VIAL As Ordered ONE; +ISOVUE-370 76% 100ML VIAL As Ordered ONE; +NEULUMEX 0.1% SUSPENSION 450ML BOTTLE (FORMERLY VOLUMEN) As Ordered ONE; -NS 1,000 ML IV ONE
== END ==
LOC: M RAD 09:30
PROVIDERS: ATTEND Internal Medicine Gastroenterology
DX: D50.9 Iron deficiency anemia, unspecified (principal); J84.10 Pulmonary fibrosis, unspecified; Z98.84 Bariatric surgery status; I70.0 Atherosclerosis of aorta; K57.90 Diverticulosis of intestine, part unspecified, without perforation or abscess without bleeding
CPT/HCPCS: 74177; J1610

== ENCOUNTER → 2023-02-22 | Outpatient (CLI) | payer BC, OTHER ==
[~2023-02-22] MED LIST changes: +CELE0.09 PO; -CELE1CAP9 PO; +DICL100G10; -DICL1GEL3; -EFFE150C2 PO; +EFFE150C3 PO; -GASTROGRAFIN SOLUTION 30ML As Ordered ONE; -GLUCAGON INJ 1MG VIAL As Ordered ONE; -ISOVUE-370 76% 100ML VIAL As Ordered ONE; +METF750T36; +MYRB25TA PO; +MYRB50TA; -NEULUMEX 0.1% SUSPENSION 450ML BOTTLE (FORMERLY VOLUMEN) As Ordered ONE; -OXYB5TAB10 PO; +OXYB5TAB11 PO
== END ==
LOC: M SLEEP 20:00
PROVIDERS: ATTEND Nurse Practitioner Family
DX: G47.33 Obstructive sleep apnea (adult) (pediatric) (principal)

== ENCOUNTER → 2023-05-23 | Outpatient (CLI) | payer OTHER ==
[~2023-05-23] MED LIST changes: -OXYB5TAB11 PO; +OXYB5TAB14 PO
== END ==
LOC: M SOG 10:55
PROVIDERS: ATTEND Orthopaedic Surgery Hand Surgery
DX: M19.041 Primary osteoarthritis, right hand (principal)

== ENCOUNTER 2023-06-13 08:52 | Day surgery (SDC) | payer OTHER ==
[~2023-06-13] VITALS: Ht 175.3 cm; Wt 158.8 kg
[2023-06-13] MEDS: LIDOCAINE 1% SDV 5ML VIAL PN ONE (07:55)
[2023-06-13] MEDS: ROPIvacaine 0.5% 30ML VIAL PN ONE (07:55)
[~2023-06-13 08:52] MED LIST changes: +AZEL15GE2; +D3 U1000 PO; +DEXTROSE 50% 50ML SYRINGE IV PRN; +GLUCAGON INJ 1MG VIAL SC PRN; +GLUCOSE 4GM CHEW TABLET PO PRN; +HYDROMORPHONE HCL 0.5 MG/ 0.5 ML SYRINGE IV PRN; +INSULIN LISPRO (NovoLOG) PER UNIT SC PRN; +LR 1,000 ML IV SCH; -METF750T36; +METF750T36 PO; -MYRB50TA; +MYRB50TA PO; +OMEP-173 PO; +ONDANSETRON 4MG 2ML VIAL IV PRN; +PROA1AER2 INH; +SEMA2.4P SQ; +VENL150C43 PO; +VENL75CA2 PO; +VITA500045 PO; +fentaNYL 100 MCG/2 ML INJECTION IV PRN; +oxyCODONE 5MG TAB PO PRN
[2023-06-13] MEDS: MIDAZOLAM INJ 2MG/2ML VIAL IV PRN (09:58)
[2023-06-13] MEDS: ceFAZolin SOD 2 GM in IV 1 EA IV ONE (10:52)
[2023-06-13] MEDS ORDERED: fentaNYL 100 MCG/2 ML INJECTION As Ordered ONE (10:52)
[2023-06-13] MEDS: ceFAZolin SOD 1 GM in D5W MINI-BAG PLUS 50 ML IV ONE (10:52)
[2023-06-13] MEDS ORDERED: MIDAZOLAM INJ 2MG/2ML VIAL As Ordered ONE (10:52)
[2023-06-13] MEDS ORDERED: propofoL 200 MG/20 ML VIAL As Ordered ONE (10:52)
[2023-06-13] MEDS ORDERED: dexmedeTOMIDine (4MCG/ML)200MCG/50ML BTL (PRECEDEX) As Ordered ONE (10:53)
[2023-06-13] MEDS ORDERED: ONDANSETRON 4MG 2ML VIAL As Ordered ONE (11:07)
[2023-06-13] MEDS ORDERED: KETOROLAC 60MG 2ML VIAL As Ordered ONE (11:10)
[2023-06-13] MEDS: BACITRACIN OINTMENT 30GM TUBE As Ordered ONE (11:16)
[2023-06-13] MEDS ORDERED: PERC5TAB12 PO (12:11)
[2023-06-13 12:44] VITALS: BP 146/75; TEMP 97.3; O2SAT 96
== END 2023-06-13 13:02 | disposition home or self-care (01) ==
LOC: M SDC 08:52
PROVIDERS: ATTEND Orthopaedic Surgery Hand Surgery
DX: M18.9 Osteoarthritis of first carpometacarpal joint, unspecified (principal); M65.331 Trigger finger, right middle finger; E88.819 Insulin resistance, unspecified; K58.9 Irritable bowel syndrome, unspecified; Z79.899 Other long term (current) drug therapy; Z79.84 Long term (current) use of oral hypoglycemic drugs; Z90.710 Acquired absence of both cervix and uterus; Z98.84 Bariatric surgery status; Z88.1 Allergy status to other antibiotic agents; Z86.11 Personal history of tuberculosis
CPT/HCPCS: 25447; 26055; 76000; 88300; C1713; J0690; J1885; J2250; J2405; J2795; J3010

== ENCOUNTER → 2023-06-20 | Outpatient (CLI) | payer OTHER ==
[~2023-06-20] MED LIST changes: -DEXTROSE 50% 50ML SYRINGE IV PRN; -GLUCAGON INJ 1MG VIAL SC PRN; -GLUCOSE 4GM CHEW TABLET PO PRN; -HYDROMORPHONE HCL 0.5 MG/ 0.5 ML SYRINGE IV PRN; -INSULIN LISPRO (NovoLOG) PER UNIT SC PRN; -LR 1,000 ML IV SCH; -ONDANSETRON 4MG 2ML VIAL IV PRN; +PERC5TAB12 PO; -fentaNYL 100 MCG/2 ML INJECTION IV PRN; -oxyCODONE 5MG TAB PO PRN
== END ==
LOC: M SOG 14:48
PROVIDERS: ATTEND Physician Assistant
DX: M18.11 Unilateral primary osteoarthritis of first carpometacarpal joint, right hand (principal)

== ENCOUNTER → 2023-07-04 | Outpatient (CLI) | payer OTHER | LOC: M SOG 09:15 | PROVIDERS: ATTEND Physician Assistant | DX: M79.641 Pain in right hand (principal); M79.642 Pain in left hand ==

== ENCOUNTER → 2023-08-08 | Outpatient (CLI) | payer OTHER | LOC: M SOG 07:58 | PROVIDERS: ATTEND Physician Assistant | DX: M18.11 Unilateral primary osteoarthritis of first carpometacarpal joint, right hand (principal) ==

== ENCOUNTER → 2023-09-09 | Outpatient (CLI) | payer OTHER ==
[~2023-09-09] MED LIST changes: +CLIN1LOT; +ERYT1CAP2; +SEMA1PEN4; +VENL25TA20 PO; -VENL25TA28 PO
== END ==
LOC: M SOG 08:02
PROVIDERS: ATTEND Physician Assistant
DX: M18.11 Unilateral primary osteoarthritis of first carpometacarpal joint, right hand (principal)

== ENCOUNTER 2023-11-29 06:17 | Day surgery (SDC) | payer OTHER ==
[~2023-11-29] VITALS: Ht 176.5 cm; Wt 149.1 kg
[~2023-11-29 06:17] MED LIST changes: -CLIN1LOT; +CLIN1LOT TOP; -ERYT1CAP2; +ERYT1CAP2 PO; -SEMA1PEN4; +SEMA1PEN4 IM
[2023-11-29] MEDS ORDERED: ESMOLOL INJ 100MG/10ML VIAL As Ordered ONE (06:34)
[2023-11-29] MEDS ORDERED: MIDAZOLAM INJ 2MG/2ML VIAL As Ordered ONE (06:37)
[2023-11-29] MEDS ORDERED: propofoL 200 MG/20 ML VIAL As Ordered ONE (06:37)
[2023-11-29] MEDS ORDERED: fentaNYL 100 MCG/2 ML INJECTION As Ordered ONE (06:37)
[2023-11-29] MEDS ORDERED: KETOROLAC 60MG 2ML VIAL As Ordered ONE (06:37)
[2023-11-29] MEDS ORDERED: LIDOCAINE 2% 100MG/5ML SDV (FOR ANES.) As Ordered ONE (06:37)
[2023-11-29] MEDS ORDERED: ACETAMINOPHEN 1000MG 100ML IV BAG As Ordered ONE (06:37)
[2023-11-29] MEDS ORDERED: ONDANSETRON 4MG 2ML VIAL As Ordered ONE (06:37)
[2023-11-29] MEDS ORDERED: LR 1,000 ML IV SCH (07:15)
[2023-11-29] MEDS: fentaNYL 100 MCG/2 ML INJECTION IV PRN (07:49)
[2023-11-29] MEDS: MIDAZOLAM INJ 2MG/2ML VIAL IV PRN (07:49)
[2023-11-29] MEDS: ROPIvacaine 0.5% 30ML VIAL PN ONE (07:50)
[2023-11-29] MEDS: dexAMETHasone 10MG/1ML VIAL PRES.FREE PN ONE (07:50)
[2023-11-29] MEDS: ceFAZolin 2 GM/D5W 50 ML IV BAG As Ordered ONE (08:20)
[2023-11-29] MEDS: ceFAZolin 1GM VIAL As Ordered ONE (08:20)
[2023-11-29] MEDS: BACITRACIN OINTMENT 30GM TUBE As Ordered ONE (08:51)
[2023-11-29] MEDS ORDERED: UNRESOLVED CLARIFICATION ENTRY XX SCH (09:00)
[2023-11-29 10:15] VITALS: BP 136/69; TEMP 96.8; O2SAT 99
== END 2023-11-29 10:22 | disposition home or self-care (01) ==
LOC: M SDC 06:17
PROVIDERS: ATTEND Orthopaedic Surgery Hand Surgery
DX: M18.12 Unilateral primary osteoarthritis of first carpometacarpal joint, left hand (principal); M65.312 Trigger thumb, left thumb; Z68.42 Body mass index [BMI] 45.0-49.9, adult; Z98.84 Bariatric surgery status; G47.30 Sleep apnea, unspecified; Z88.1 Allergy status to other antibiotic agents; Z79.899 Other long term (current) drug therapy
CPT/HCPCS: 25447; 26055; 64450; 76000; 88300; C1713; J0131; J0665; J0690; J1100; J2250; J2405; J3010

== ENCOUNTER → 2023-12-13 | Outpatient (CLI) | payer OTHER | LOC: M SOG 10:53 | PROVIDERS: ATTEND Physician Assistant | DX: M65.312 Trigger thumb, left thumb (principal); M18.12 Unilateral primary osteoarthritis of first carpometacarpal joint, left hand ==

== ENCOUNTER → 2024-01-10 | Outpatient (CLI) | payer OTHER ==
[~2024-01-10] MED LIST changes: -ERYT1CAP2 PO; +ERYT250C50 PO
== END ==
LOC: M SOG 16:04
PROVIDERS: ATTEND Physician Assistant
DX: M65.312 Trigger thumb, left thumb (principal); M18.12 Unilateral primary osteoarthritis of first carpometacarpal joint, left hand

== ENCOUNTER → 2024-02-26 | Outpatient (CLI) | payer OTHER | LOC: M SOG 15:03 | PROVIDERS: ATTEND Physician Assistant | DX: M18.12 Unilateral primary osteoarthritis of first carpometacarpal joint, left hand (principal); M65.312 Trigger thumb, left thumb ==

== ENCOUNTER → 2024-09-29 | Outpatient (CLI) | payer OTHER ==
[~2024-09-29] MED LIST changes: -BUPR1TAB56 PO; +BUPR200T45 PO; +METHACHOLINE KIT (6 VIAL.NEB PREMIX) INH ONE
== END ==
LOC: M CARPUL 10:35
PROVIDERS: ATTEND Internal Medicine Pulmonary Disease
DX: J45.30 Mild persistent asthma, uncomplicated (principal)
CPT/HCPCS: 94070; 95070; J7674

== ENCOUNTER → 2024-10-06 | Outpatient (REF) ==
[~2024-10-06] MED LIST changes: -METHACHOLINE KIT (6 VIAL.NEB PREMIX) INH ONE
== END ==
LOC: M PLAIMG 11:45
PROVIDERS: ATTEND Internal Medicine
DX: M47.896 Other spondylosis, lumbar region (principal); M17.11 Unilateral primary osteoarthritis, right knee

== ENCOUNTER → 2024-10-21 | Outpatient (CLI) | payer OTHER | LOC: M SLEEP HO 10:41 | PROVIDERS: ATTEND Internal Medicine Pulmonary Disease | DX: R06.81 Apnea, not elsewhere classified (principal); R51.9 Headache, unspecified; G47.9 Sleep disorder, unspecified ==

== ENCOUNTER → 2025-01-08 | Outpatient (REF) | payer OTHER ==
[~2025-01-08] MED LIST changes: +ERGO125013 PO; +SEMA2.4P; +SPIR-10; -VITA500045 PO
== END ==
LOC: M LAB REF 12:48
PROVIDERS: ATTEND Internal Medicine Pulmonary Disease
DX: R91.8 Other nonspecific abnormal finding of lung field (principal)

== ENCOUNTER → 2025-01-26 | Outpatient (CLI) | payer OTHER | LOC: M PLAIMG 15:03 | PROVIDERS: ATTEND Internal Medicine Pulmonary Disease | DX: R06.00 Dyspnea, unspecified (principal); R91.8 Other nonspecific abnormal finding of lung field; L40.8 Other psoriasis; R59.0 Localized enlarged lymph nodes ==